=== PATIENT | male | born 1935 | race African-American/Black ===

== ENCOUNTER 2022-04-01 14:59 | Emergency (ER) | payer MEDICARE, SELFPAY ==
--- NOTE | ~2022-04-01 | XR_ITS ---
EXAM: XR finger 2nd LT min 2V HISTORY: FALL, PAIN TO 2ND LT DIGIT COMPARISON: None available FINDINGS: Normal mineralization. No fracture or dislocation. No lytic or blastic lesion. Joint space narrowing and mild erosive irregularity, moderate at the left second PIP, mild in the left second DI P, inflammatory arthritides should be considered in the differential. No periosteal change. Soft tiss ues swelling over the left second digit. IMPRESSION: No acute osseous finding in the left second digit. Reviewed, dictated and finalized at location K.
[2022-04-01 15:01] VITALS: BP 149/100; PULSE 100; RESP 16; TEMP 36.3; O2SAT 100
--- NOTE | 2022-04-01 15:43 | ED.GENADULT ---
HPI - General Adult General Chief complaint: Unspecified Stated complaint: left index finger inj Time Seen by Provider: 04/01/22 15:07 History of Present Illness HPI narrative: 86-year-old male presents the emergency room complaints of a left index finger pain. Patient states that he was loading their condition into a truck when the air conditioner slipped causing his finger to jam and into the bed of the truck. Patient noticed swelling and bruising immediately following the injury. States injury occurred yesterday. Related Data Home Medications Medication Instructions Recorded Confirmed apixaban [Eliquis] mg 11/18/19 pregabalin [Lyrica] 11/18/19 simvastatin mg 11/18/19 sotalol [Sotalol AF] 11/18/19 Allergies Allergy/AdvReac Type Severity Reaction Status Date / Time Penicillins Allergy Rash Verified 04/01/22 15:03 ramipril Allergy Unknown Verified 04/01/22 15:03 Review of Systems Review of Systems: CONSTITUTIONAL: Denies fever, chills, or sweats. EYES: Denies visual changes, redness, or discharge. ENT: Denies rhinorrhea, congestion, sore throat, or otalgia. CARDIOVASCULAR: Denies chest pain, palpitations, or edema. RESPIRATORY: Denies cough or dyspnea. GASTROINTESTINAL: Denies abdominal pain, nausea, vomiting, or diarrhea. GENITOURINARY: Denies dysuria or hematuria. SKIN: Denies rash or itching. MUSCULOSKELETAL: Reports left index finger pain. NEUROLOGIC: Denies headache, numbness, dizziness, or weakness. PSYCHIATRIC: Denies anxiety or depression. PMFSH Past Medical History Medical History Arthritis Bulging disc HLD (hyperlipidemia) Leukemia Sciatica Surgical History Surgical History No significant past surgical history Social History Social History Smoking status: Never smoker Gender identity (if verbalized by the patient): Male Exam Narrative: GENERAL: Well-appearing, well-nourished, and in no acute distress. HEAD: Normocephalic, atraumatic. EYES: PERRLA and EOMI. CHEST: Clear to auscultation. No respiratory distress. No wheezes rales or rhonchi HEART: Regular rate and rhythm. No murmur heard. Normal peripheral pulses. EXTREMITIES: Normal range of motion. No edema. Left index finger: 1, tenderness to the medial phalanx, no bony abnormality, range of motion limited to swelling and pain, neurovascular is intact distally SKIN: Warm, dry, no rash. NEURO: No focal deficits. Alert and oriented x3. PSYCH: Normal mood and affect. Course Vital Signs Vital signs: Vital Signs Temperature 36.3 C L 04/01/22 15:01 Pulse Rate 100 04/01/22 15:01 Respiratory Rate 16 04/01/22 15:01 Blood Pressure 149/100 H 04/01/22 15:01 Pulse Oximetry 100 04/01/22 15:01 Temperature 36.3 C L 04/01/22 15:01 Pulse Rate 100 04/01/22 15:01 Respiratory Rate 16 04/01/22 15:01 Blood Pressure 149/100 H 04/01/22 15:01 Pulse Oximetry 100 04/01/22 15:01 Medical Decision Making Vital Signs Vital Signs: Vital Signs Temperature 36.3 C L 04/01/22 15:01 Pulse Rate 100 04/01/22 15:01 Respiratory Rate 16 04/01/22 15:01 Blood Pressure 149/100 H 04/01/22 15:01 Pulse Oximetry 100 04/01/22 15:01 Temperature 36.3 C L 04/01/22 15:01 Pulse Rate 100 04/01/22 15:01 Respiratory Rate 16 04/01/22 15:01 Blood Pressure 149/100 H 04/01/22 15:01 Pulse Oximetry 100 04/01/22 15:01 Imaging Data Radiologist's impression: Impressions Finger X-Ray 04/01/22 15:28 IMPRESSION: No acute osseous finding in the left second digit. Discharge Plan Discharge Clinical Impression: Other sprain of left index finger, initial encounter Patient Disposition: Home, Self-Care Condition: Stable Instructions: Antibiotic Form, Finger Sprain (ED) Prescriptions: No Action sotalol [Sotalol
--- NOTE | 2022-04-01 15:50 | PC.NURSE ---
Metal splint applied to left index finger per physician's order.
== END 2022-04-01 16:00 | disposition home or self-care (01) ==
PROVIDERS: Emergency Provider Nurse Practitioner Family
DX: S63.611A Unspecified sprain of left index finger, initial encounter (principal); Z79.01 Long term (current) use of anticoagulants; M19.90 Unspecified osteoarthritis, unspecified site; E78.5 Hyperlipidemia, unspecified; W22.8XXA Striking against or struck by other objects, initial encounter
CPT/HCPCS: 29130; 73140; 99283